=== PATIENT | male | born 1970 | race Caucasian/White ===

== ENCOUNTER → 2017-05-04 | Emergency (ER) | payer OTHER ==
[~2017-05-04] VITALS: Ht 152.4 cm; Wt 83.9 kg
[~2017-05-04] MED LIST: OMEGA 3 FISH OI1 CAP; VITAMIN B-1250 MC1
== END | disposition home or self-care (01) ==
LOC: ER 07:39
DX: N48.89 Other specified disorders of penis (principal); I10 Essential (primary) hypertension